=== PATIENT | female | born 1985 | race Asian ===

== ENCOUNTER 2018-12-12 23:48 | Emergency (ER) | payer SELFPAY ==
[~2018-12-12] VITALS: Ht 149.9 cm; Wt 44.0 kg
[2018-12-12 23:51] VITALS: Ht 149.9 cm; Wt 44.0 kg
[2018-12-13 01:03] VITALS: BP 107/69
== END 2018-12-13 01:03 | disposition home or self-care (01) ==
LOC: ED 23:48
DX: M25.561 Pain in right knee (principal); M25.562 Pain in left knee; M54.2 Cervicalgia; V49.9XXA Car occupant (driver) (passenger) injured in unspecified traffic accident, initial encounter; Y93.I9 Activity, other involving external motion; Y92.413 State road as the place of occurrence of the external cause; Y99.8 Other external cause status